=== PATIENT | female | born 1965 | race Two or more races ===

== ENCOUNTER 2021-09-09 21:33 | Emergency (ER) | payer SELFPAY ==
[~2021-09-09] VITALS: Ht 160 cm; Wt 81.6 kg
[2021-09-09 21:35] VITALS: BP 134/50
[2021-09-09] MEDS ORDERED: ASPirin 81 mg TAB PO ONE (22:15)
== END 2021-09-10 02:54 | disposition left against medical advice (07) ==
LOC: ER 21:33
DX: R07.89 Other chest pain (principal); Z53.21 Procedure and treatment not carried out due to patient leaving prior to being seen by health care provider

== ENCOUNTER 2024-10-11 17:47 | Inpatient (IN) | payer OTHER, MEDICARE ==
[~2024-10-11] VITALS: Ht 157.5 cm; Wt 72.7 kg
[2024-10-11 20:16] LABS: Basophils # (auto) 0.1 10 ^3/uL (0-0.2); Basophils % (auto) 0.9 % (0.0-2.0); Eosinophils # (auto) 0.1 10 ^3/uL (0-0.8); Eosinophils % (auto) 0.9 % (0.0-7.0); Hematocrit 44.6 % (36.0-46.0); Lymphocytes # (auto) 2.4 10 ^3/uL (0.4-5.4); Lymphocytes % (auto) 25.8 % (10.0-50.0); Mean Corpuscular Hemoglobin 30.1 pg (28.0-32.0); Mean Corpuscular Hgb Conc. 33.7 g/dL (32.0-36.0); Mean Corpuscular Volume 89.3 fL (80.0-100.0); Monocytes # (auto) 0.8 10 ^3/uL (0-1.3); Monocytes % (auto) 8.5 % (0.0-12.0); Neutrophils # (auto) 5.9 10 ^3/uL (1.6-8.6); Neutrophils % (auto) 63.9 % (37.0-80.0); Platelet Count (auto) 365 10^3/uL (140-450); Red Blood Cells 4.99 10^6/uL (4.0-5.20); Red Cell Distribution Width 15.1 % (11.8-14.3); White Blood Cell 9.2 10^3/uL (4.4-10.8)
[2024-10-11] MEDS: ACETAMINOPHEN 325 MG TAB PO ONE (20:17)
[2024-10-11] MEDS: FAMOTIDINE 20 MG TAB PO ONE (20:17)
[2024-10-11] MEDS: KETOROLAC TROMETH 30 MG/ML 1ML VIAL IM ONE (20:18)
--- NOTE | 2024-10-11 20:19 | DVH ---
EXAM: XY CHEST TWO VIEWS ROUTINE CLINICAL HISTORY: left lower chest wall pain TECHNIQUE: Frontal and lateral views of the chest WID: COMPARISON: None FINDINGS: Lines and tubes: None Chest: The heart size and pulmonary vasculature is within normal limits. No pleural effusion, pneumothorax, or consolidation. The osseous structures are grossly intact. Multilevel thoracic spondylosis. IMPRESSION: No acute cardiopulmonary abnormality.
[2024-10-11 20:21] LABS: Potassium 4.5 mmol/L (3.5-5.1); Sodium 143 mmol/L (136-145)
[2024-10-11 20:22] LABS: Anion Gap 8 (5-15); Carbon Dioxide 24 mmol/L (20-31)
[2024-10-11 20:27] LABS: Blood Urea Nitrogen 20 mg/dL (9-23)
[2024-10-11 20:31] LABS: Calcium 11.6 mg/dL (8.7-10.4); Chloride 111 mmol/L (98-107); Glucose 123 mg/dL (74-106)
--- NOTE | 2024-10-11 20:31 | ED.PDOC ---
History of Present Illness HPI Comments 59 year old female came to ER due to shortness of breath. Patient denies any medical problems, States for the past week, she has been having left lower ribcage pain/ left upper quadrant abdominal pain, that worsens whenever she coughs or moves/ dances. Pain causes her shortness of breath. 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 Patient also complaining of lower back pains that makes it hard for her to ambulate/ walk. Chief Complaint: Shortness of Breath Time Seen by MD: 20:30 Primary Care Provider: CHANDANA Reviewed Notes: Nurses Notes Allergies: Coded Allergies: Latex (Verified Allergy, Unknown, 10/11/24) Information Source: Patient Mode of Arrival: Wheelchair Severity: Moderate Timing: Days Duration: Since onset Prehospital treatment: None Past Medical History PAST MEDICAL HISTORY: Denies Surgical History: Denies all surgeries NEMATOLOGIST History: Denies all NEMATOLOGIST Hx Family History Family History: Reviewed,noncontributory to illness Social History Smoker: Non-Smoker Alcohol: Denies ETOH Use Drugs: Denies Drug Use Lives In: Home Constitutional: denies: chills, diaphoresis, fatigue, fever, malaise, sweats, weakness, others EENTM: denies: blurred vision, double vision, ear bleeding, ear discharge, ear drainage, ear pain, ear ringing, eye pain, eye redness, hearing loss, mouth pain, mouth swelling, nasal discharge, nose bleeding, nose congestion, nose pain, photophobia, tearing, throat pain, throat swelling, voice changes, others Respiratory: denies: cough, hemoptysis, orthopnea, SOB at rest, shortness of breath, SOB with excertion, stridor, wheezing, others Cardiovascular: reports: chest pain (left lower ribcage); denies: dizzy spells, diaphoresis, Dyspnea on exertion, edema, irregular heart beat, left arm pain, lightheadedness, palpitations, PND, syncope, others Gastrointestinal: reports: abdominal pain (LUQ); denies: abdomen distended, blood streaked bowels, constipated, diarrhea, dysphagia, difficulty swallowing, hematemesis, melena, nausea, poor appetite, poor fluid intake, rectal bleeding, rectal pain, vomiting, others Genitourinary: denies: abnormal vagina bleeding, burning, dyspareunia, dysuria, flank pain, frequency, hematuria, incontinence, pain, , vagina discharge, urgency, others Neurological: denies: dizziness, fainting, headache, left sided numbness, left sided weakness, numbness, paresthesia, pre-existing deficit, right sided numbness, right sided weakness, seizure, speech problems, tingling, tremors, weakness, others Musculoskeletal: reports: back pain; denies: gout, joint pain, joint swelling, muscle pain, muscle stiffness, neck pain, others Integumetry: denies: bruises, change in color, change in hair/nails, dryness, laceration, lesions, lumps, rash, wounds, others Allergic/Immunocompromised: denies: Difficulty Healing, Frequent Infections, Hives, Itching, others Hematologic/Lymphatic: denies: anemia, blood clots, easy bleeding, easy bruising, swollen glands, others Endocrine: denies: excessive hunger, excessive sweating, excessive thirst, excessive urination, flushing, intolerance to cold, intolerance to heat, unexpl ained weight gain, unexplained weight loss, others Psychiatric: denies: anxiety, bipolar disorder, depression, hopeless, panic disorder, schizophrenia, sleepless, suicidal, others Physical Exam General Appearance: No Apparent Distress, Normal HEENT: Normal ENT Inspection, Pharynx Normal, TMs Normal Neck: Full Range of Motion, Non-Tender, Normal, Normal Inspection Respiratory: Chest Non-Tender, Lungs Clear, No Accessory Muscle Use, No Respiratory Distress, Normal Breath Sounds Cardiovascular: No Edema, No JVD, No Murmur, No Gallop, Normal Peripheral Pulses, Regular Rate/Rhythm Breast Exam: Deferred Gastrointestinal: LUQ, No Organomegaly, No Pulsatile Mass, Normal Bowel Sounds, Soft, Tenderness Genitalia: Deferred Pelvic: Deferred Rectal: Deferred Extremities: No calf tenderness, Normal capillary refill, Normal inspection, Normal range of motion, Non-tender, No pedal edema Musculoskeletal : Apperance: Normal Neurologic: Alert, garnett mechanic II-XII nml as Tested, No Motor Deficits, Normal Affect, Normal Mood, No Sensory Deficits Cerebellar Function: Normal Reflexes: Normal Skin: Dry, Normal Color, Warm Lymphatic: No Adenopathy Was a procedure done? Was a procedure done?: No Differential Dx Considerations may include: musculoskeletal pain, electrolyte imbalance, anxiety, chronic back pains X-Ray, Labs, Meds, VS Vital Signs Date Time Temp Pulse Resp B/P (MAP) Pulse Ox O2 Delivery O2 Flow Rate FiO2 10/11/24 20:23 98.9 77 18 126/80 (95) 96 98.9 10/11/24 20:23 77 18 96 Room Air 10/11/24 20:17 98.9 10/11/24 18:31 70 10/11/24 18:15 Room Air* 0 21 10/11/24 18:12 97.0 78 16 115/91 (99) 97 Lab Test 10/11/24 20:00 Range/Units White Blood Count 9.2 4.4-10.8 10^3/uL Red Blood Count 4.99 4.0-5.20 10^6/uL Hemoglobin 15.0 12.2-16.2 g/dL Hematocrit 44.6 36.0-46.0 % Mean Corpuscular Volume 89.3 80.0-100.0 fL Mean Corpuscular Hemoglobin 30.1 28.0-32.0 pg Mean Corpuscular Hemoglobin Concent 33.7 32.0-36.0 g/dL Red Cell Distribution Width 15.1 H 11.8-14.3 % Platelet Count 365 140-450 10^3/uL Mean Platelet Volume 7.9 6.9-10.8 fL Neutrophils (%) (Auto) 63.9 37.0-80.0 % Lymphocytes (%) (Auto) 25.8 10.0-50.0 % Monocytes (%) (Auto) 8.5 0.0-12.0 % Eosinophils (%) (Auto) 0.9 0.0-7.0 % Basophils (%) (Auto) 0.9 0.0-2.0 % Neutrophils # (Auto) 5.9 1.6-8.6 10 ^3/uL Lymphocytes # (Auto) 2.4 0.4-5.4 10 ^3/uL Monocytes # (Auto) 0.8 0-1.3 10 ^3/uL Eosinophils # (Auto) 0.1 0-0.8 10 ^3/uL Basophils # (Auto) 0.1 0-0.2 10 ^3/uL Nucleated Red Blood Cells 0.0 % Sodium Level 143 136-145 mmol/L Potassium Level 4.5 3.5-5.1 mmol/L Chloride Level 111 H 98-107 mmol/L Carbon Dioxide Level 24 20-31 mmol/L Anion Gap 8 5-15 Blood Urea Nitrogen 20 9-23 mg/dL Creatinine 0.69 0.550-1.02 mg/dL Glomerular Filtration Rate Calc 99 >90 mL/min BUN/Creatinine Ratio 29.0 H 10.0-20.0 Serum Glucose 123 H 74-106 mg/dL Calcium Level 11.6 H 8.7-10.4 mg/dL Troponin I High Sensitivity < 3 L </=34 ng/L Current Medications Medications (Trade) Dose Ordered Sig/Terrell Route Start Time Stop Time Status Last Admin Acetaminophen (Tylenol Tablet) 650 mg ONCE ONCE PO 10/11/24 20:00 10/11/24 20:01 DC 10/11/24 20:17 Ketorolac Tromethamine (Toradol Injection) 15 mg ONCE ONCE IM 10/11/24 20:00 10/11/24 20:01 DC 10/11/24 20:18 Famotidine (Pepcid Tablet) 20 mg ONCE ONCE PO 10/11/24 20:00 10/11/24 20:01 DC 10/11/24 20:17 Time of 1ST Reevaluation: 20:22 Reevaluation 1ST: Unchanged Patient Education/Counseling: Diagnosis, Treatment Family Education/Counseling: No Family Present Departure 1 Departure Time of Disposition: 22:01 (Patient with a worsening shortness of breath and left-sided chest pain. We will admit patient for further workup and expert consultation) Impression: Primary Impression: Shortness of breath Additional Impression: Left-sided chest pain Disposition: ADMITTED INPATIENT Admit to: Med Surg Condition: Serious Critical Care Note Critical Care Time?: No Stability Stability form required: No Heart Score Heart Score: Heart Score Response (Comments) Value History Slightly Suspicious 0 EKG Repolarization Disturb 1 Age 45-64 1 Risk Factors 1 or 2 risk factors 1 Troponin 1-2 x's Normal limit 1 Total 4 I personally scribed for MIKE HAN MD ([email or web address]) on 10/11/24 at 20:31. Electronically submitted by Aidan Franks ([email or web address]). MIKE HAN MD Oct 11, 2024 20:31
--- NOTE | 2024-10-11 23:51 | DVHHPRES ---
History of Present Illness Resident Creating Document: TAMRA HOLLY RESIDENT History of Present Illness Patient is a 59-year-old female with past medical history of nephrolithiasis, prolapsed rectum, urinary retention, who came in due to shortness of breath. According to the patient, for the past 10 days she has been having a cough productive of whitish sputum along with a left upper quadrant pain which worsens on coughing and breathing. Patient notes that on after finishing water aerobics, her left upper quadrant pain worsened and she felt like she could not breathe, patient also had multiple episodes of vomiting with the last one on 10/11/2024. Patient also states she has been experiencing increasing lower back pain, localized to the lumbosacral area along with increasing right lower extremity weakness. Patient notes that she has had chronic weakness in right lower extremity for the last 10 years, but at baseline she is ambulatory without wheelchair, walker or a cane. However, since 09/15/2024 she is experiencing weakness in her right leg which has necessitated the use of her cane. On review of symptoms she is complaining of fatigue, fever, productive cough, dyspnea, josie rtness of breaths, nausea and diarrhea with up to 10 bowel movements per day. Past Medical History nephrolithiasis, prolapsed rectum, urinary retention Past Surgical History New repair surgery, appendectomy, hysterectomy, urethral diverticulum repair Lives: with Family Past Social History Smoking: Quit smoking 10 years ago, prior to that was smoking half a pack per day for 20 years Alcohol: Denies Drugs: Denies Review of Systems Constitutional: Yes: Fever, Chills, Weakness; No: Sweats, Malaise, Other Eyes: No: Pain, Vision change, Conjunctivae inflammation, Eyelid inflammation, Other, Redness ENT: No: Ear pain, Ear discharge, Nose pain, Nose discharge, Nose congestion, Mouth pain, Mouth swelling, Throat pain, Throat swelling, Other Respiratory: Cough, Shortness of breath, SOB with excertion, Wheezing; No: Dry, Hemoptysis, Pleuritic Pain, Sputum, Wheezing, Other Cardiovascular: Orthopnea; No: Chest Pain, Palpitations, Paroxysmal Noc. Dyspnea, Edema, Lt Headedness, Other Gastrointestinal: Nausea, Vomiting, Diarrhea; No: Abdominal Pain, Constipation, Melena, Hematochezia, Other Genitourinary: No Dysuria, No Frequency, No Incontinence, No Hematuria, No Retention, No Other Musculoskeletal: No: other, neck pain, shoulder pain, arm pain, back pain, hand pain, leg pain, foot pain Skin: No: Rash, Lesions, Jaundice, Bruising, Other Neurological: Weakness; No: Numbness, Incoordination, Change in speech, Confusion, Seizures, Other Allergies: Coded Allergies: Latex (Verified Allergy, Unknown, 10/11/24) Exam Vital Signs Vital Signs Date Time Temp Pulse Resp B/P (MAP) Pulse Ox O2 Delivery O2 Flow Rate FiO2 10/11/24 21:20 98.2 10/11/24 20:23 77 18 126/80 (95) 96 10/11/24 20:23 Room Air 10/11/24 18:15 0 21 General Appearance: Alert, Oriented X3, Cooperative, mild distress HEENT: Atraumatic, PERRLA, EOMI, Mucous membr. moist/pink Respiratory: Clear to auscultation, Normal air movement Cardiovascular: Regular rate, Normal S1, Normal S2, No murmurs Abdominal: Other (Midepigastric tenderness to palpation, bilateral costovertebral angle tenderness) Extremities: Other (Strength in right lower extremity) Skin: No rashes, No breakdown, No significant lesion Neuro: Normal speech Psych/Mental Status: Mental status NL, Mood NL Labs/Xrays Labs Test 10/11/24 20:00 Range/Units White Blood Count 9.2 4.4-10.8 10^3/uL Red Blood Count 4.99 4.0-5.20 10^6/uL Hemoglobin 15.0 12.2-16.2 g/dL Hematocrit 44.6 36.0-46.0 % Mean Corpuscular Volume 89.3 80.0-100.0 fL Mean Corpuscular Hemoglobin 30.1 28.0-32.0 pg Mean Corpuscular Hemoglobin Concent 33.7 32.0-36.0 g/dL Red Cell Distribution Width 15.1 H 11.8-14.3 % Platelet Count 365 140-450 10^3/uL Mean Platelet Volume 7.9 6.9-10.8 fL Neutrophils (%) (Auto) 63.9 37.0-80.0 % Lymphocytes (%) (Auto) 25.8 10.0-50.0 % Monocytes (%) (Auto) 8.5 0.0-12.0 % Eosinophils (%) (Auto) 0.9 0.0-7.0 % Basophils (%) (Auto) 0.9 0.0-2.0 % Neutrophils # (Auto) 5.9 1.6-8.6 10 ^3/uL Lymphocytes # (Auto) 2.4 0.4-5.4 10 ^3/uL Monocytes # (Auto) 0.8 0-1.3 10 ^3/uL Eosinophils # (Auto) 0.1 0-0.8 10 ^3/uL Basophils # (Auto) 0.1 0-0.2 10 ^3/uL Nucleated Red Blood Cells 0.0 % Sodium Level 143 136-145 mmol/L Potassium Level 4.5 3.5-5.1 mmol/L Chloride Level 111 H 98-107 mmol/L Carbon Dioxide Level 24 20-31 mmol/L Anion Gap 8 5-15 Blood Urea Nitrogen 20 9-23 mg/dL Creatinine 0.69 0.550-1.02 mg/dL Glomerular Filtration Rate Calc 99 >90 mL/min BUN/Creatinine Ratio 29.0 H 10.0-20.0 Serum Glucose 123 H 74-106 mg/dL Calcium Level 11.6 H 8.7-10.4 mg/dL Troponin I High Sensitivity < 3 L </=34 ng/L Assessment/Plan Assessment/Plan Atypical chest pain - troponin <3 - CXR: No acute cardiopulmonary abnormality - BNP 6.04 Lumbosacral pain likely due to spinal stenosis - CT lumbosacral spine: No acute osseous abnormality or traumatic malalignment. Multilevel degenerative spinal stenosis up to moderate at L3-L4 and mild at L2- L3. Multilevel degenerative neural foraminal stenosis up to vfkt-sy-knsyxckj bi laterally at L2-L3 and L3-L4 and moderate on the left at L4-L5. - cyclobenzaprine 5 mg t.i.d. as needed for muscle spasms Acute intractable left upper quadrant abdominal pain likely musculoskeletal strain from persistent coughing - serum lipase 46 - Robitussin as needed for cough - ordered COVID influenza testing Hypercalcemia, corrected calcium 11.2 - elevated serum parathyroid hormone: 132.6 - ordered vitamin-D levels Acute-subacute diarrhea - ordered stool bacterial culture, stool occult blood - ordered stool C diff - monitor PUD prophylaxis: Pepcid 20 mg b.i.d. DVT prophylaxis: SCDs Goals of care: Full code, discussed for >16 minutes on 10/11/2024 Plan discussed with patient Plan discussed with Dr. Membreno Plan discussed with: Patient, Other (RN) Date of Service: Oct 11, 2024 Billing Provider: LACEY MEMBRENO MD Common Visit Codes: [id number] INP/OBS CARE (HIGH) TAMRA HOLLY RESIDENT Oct 11, 2024 23:51 LACEY MEMBRENO MD Oct 12, 2024 10:06
[2024-10-12] MEDS ORDERED: guaiFENesin 200 MG/10 ML UD PO PRN (00:30)
[2024-10-12 00:43] LABS: Albumin 4.5 g/dL (3.2-4.8)
--- NOTE | 2024-10-12 01:40 | DVH ---
CT LS SPINE WO CONTRAST INDICATION: RLE weakness EXAM DATE: 10/12/2024 12:40 AM COMPARISON: None RADIATION DOSE: CTDIvol: 30.12 mGy, DLP: 1048.37 mGy*cm PROCEDURE: Utilizing the CT scanner, contiguous axial scans were obtained through the lumbar spine. C oronal and sagittal reformatted images were then generated. All CT scans at this medical facility are performed using dose modulation techniques as appropriate t o a performed exam including the following: Automated exposure control was utilized; adjustment of th e MA and/or KV according to patient size; and use of iterative reconstruction technique. FINDINGS: For the purposes of this dictation there are 5 tlb-fao-quaeove lumbar type vertebral bodies with the 1st bnz-llw-erjdiyt vertebral body designated as L1. The lumbar vertebral body heights and alignment are maintained. Mild degenerative disc space narrowing at L5-S1 and yihv-fu-vyodjxxp disc space narro wing at L2-L3.The cortical margins are intact. No acute fracture. On axial images: At T12-L1, no significant stenosis. At L1-2, there is facet hypertrophy and a mild diffuse disc bulge though without high-grade stenosis. At L2-3, there is a diffuse disc bulge, facet hypertrophy, and mild ligamentum flavum thickening resu lting in mild spinal stenosis and mild 2 moderate bilateral neural foraminal stenosis. At L3-4, there is a diffuse disc bulge, facet hypertrophy, and ligamentum flavum thickening resulting in moderate spinal stenosis and xsef-qv-lnhdqmoq bilateral neural foraminal stenosis. At L4-5, there is a diffuse disc bulge and facet hypertrophy resulting in mild spinal stenosis modera te left and mild right neural foraminal stenosis. At L5-S1, there is no significant stenosis. The posterior paraspinal soft tissues are unremarkable. There are hypodense left greater than right r enal lesions not optimally evaluated without contrast though may reflect cysts. There is mild calcifi ed plaque in the aortoiliac vessels. IMPRESSION: 1. No acute osseous abnormality or traumatic malalignment. 2. Multilevel degenerative spinal stenosis up to moderate at L3-L4 and mild at L2-L3. 3. Multilevel degenerative neural foraminal stenosis up to znoe-cu-bkauxrmq bilaterally at L2-L3 and L3-L4 and moderate on the left at L4-L5.
[2024-10-12] MEDS: CYCLOBENZAPRINE HCL 10 MG TAB PO PRN (05:29)
[2024-10-12 08:00] VITALS: PULSE 68; RESP 18; O2SAT 97
[2024-10-12 09:00] VITALS: BP 126/77; PULSE 68; RESP 18; TEMP 97.9; O2SAT 97
[2024-10-12] MEDS: FAMOTIDINE (10MG/ML) 2ML VL IV SCH (09:39)
[2024-10-12 11:53] LABS: Rapid Influenza A Negative (Negative); Rapid Influenza B Negative (Negative)
[2024-10-12 11:54] LABS: COVID19 ANTIGEN SOFIA FIA NEGATIVE (NEGATIVE)
--- NOTE | 2024-10-14 07:10 | ECG ---
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
--- NOTE | 2024-10-15 13:41 | ECG ---
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
== END 2024-10-12 15:38 | disposition left against medical advice (07) | DRG 552 ==
LOC: ER 17:47 → OVERFLOW 23:51
PROVIDERS: ATTEND Emergency Medicine
DX: M48.07 Spinal stenosis, lumbosacral region (principal); R07.89 Other chest pain; R33.9 Retention of urine, unspecified; Z20.822 Contact with and (suspected) exposure to COVID-19; E83.52 Hypercalcemia; R19.7 Diarrhea, unspecified; Z91.040 Latex allergy status; Z87.442 Personal history of urinary calculi; Z87.891 Personal history of nicotine dependence
CPT/HCPCS: 36415; 71046; 72131; 80048; 82040; 82306; 83690; 83880; 83970; 84443; 84484; 85025; 87426; 87804; 93005; G0378; J1885; J3490